=== PATIENT | female | born 1945 | race Caucasian/White ===

== ENCOUNTER 2023-12-18 09:38 | Emergency (ER) | payer MEDICARE, OTHER, SELFPAY ==
[2023-12-18 10:07] VITALS: BP 174/90
[2023-12-18 11:01] VITALS: BP 167/113
--- NOTE | 2023-12-18 11:12 | ED.CVA ---
History of Present Illness
General
Chief Complaint: CVA/TIA Symptoms
Source: patient
Exam Limitations: none
Time Seen by Provider: 12/18/23 10:44
Nursing documentation reviewed up to this point in time: agreed with
Onset of Stroke Symptoms
Onset of symptoms known: Yes
Date of onset of symptoms: 12/16/23
Travel History
Have you had any contact with someone who has COVID-19?: No
Do you have any symptoms of coronavirus? Fever > 100 degrees, chills, cough, shortness of breath, sore throat, loss of taste or smell, muscle aches, or headache?: No
History of Present Illness
History of Present Illness:
Patient discharged from [facility] 2 days ago, presents to ED secondary to continual shortness of breath with exertion along with leg swelling, as well as brief moment of slurred speech noted at the hospital prior to discharge, which has not
reoccurred. Denies headache. Denies dizziness. Denies blurred vision. Denies loss of sensation or weakness. Denies chest pain. Denies fever. Patient was started on torsemide upon discharge, which has caused her to go to the bathroom
frequently. 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 After the procedure, her shortness with exertion had improved drastically until recently. In addition, recently due to lifestyle and
dietary indiscretion, patient has gained approximately 20 pounds of weight.
Review of Systems
Review of Systems
Allergies reviewed?: Yes
All Other Systems: ROS reviewed and negative except as documented in HPI and ROS
Constitutional: Reports no symptoms
EENT: Reports no symptoms
Respiratory: Reports trouble breathing
Cardiac: Reports no symptoms
ABD/GI: Reports no symptoms
: Reports no symptoms
Musculoskeletal: Reports edema and other (foot pain)
Skin: Reports no symptoms
Neurological: Reports other (Slurred speech); Denies weakness
Phy Exam
Physical Exam
Physical Exam:
Physical Exam
General: no apparent distress, not acutely ill. afebrile. obese
Head: nc/at. eomi
Neck: supple. no meningeal signs.
Heart: s1/s2 regular rate and rhythm, systolic ejection murmur. equal radial pulses.
Lungs: no acute respiratory distress. clear bilaterally
Abdomen: normal bowel sounds. not tender.
Neuro: alert and oriented. no focal neurological deficits. normal speech.
Skin: no rash
Psychiatric: well kept. interactive and cooperative
Extremities: b/l LE edema. no calf tenderness.
Course
Orders/Labs/Results
Orders:
Orders
12/18/23 11:10
Electrocardiogram (*1) Urgent
Reason for Study: Shortness of Breath
CT Head W/o Iv Contrast Urgent
Comment:
Reason For Exam: slurred speech
EKG- Treatment ONCE
CR Chest - 2 Views Urgent
Comment:
Reason For Exam: sob w exertion
12/18/23 11:12
Physical Therapy Consult [Pt Eval And Treat] Urgent
Activity Level: As Tolerated
12/18/23 11:16
Basic Metabolic Panel Urgent
Complete Blood Count/No Diff Urgent
Magnesium Urgent
NT-proBNP Urgent
Troponin I Urgent
Abnormal Lab Results
12/18/23
11:16
WBC 12.3 H 10^3/uL
(4.8-10.8)
RBC 3.85 L 10^6/uL
(4.20-5.40)
Hgb 11.7 L g/dL
(12.0-16.0)
Hct 35.4 L %
(37.0-47.0)
BUN 31 H mg/dl
(7-17)
Glucose 181 H mg/dl
(70-99)
12/18/23 11:16
12/18/23 11:16
Vital Signs
Initial and Last Documented VS:
Initial Vital Signs
Temp Pulse Resp BP Pulse Ox
98.1 F 77 16 174/90 98
12/18/23 10:07 12/18/23 10:07 12/18/23 10:07 12/18/23 10:07 12/18/23 10:07
Last Documented Vital Signs
Temp Pulse Resp BP Pulse Ox
98.1 F 76 16 165/76 96
12/18/23 10:07 12/18/23 11:29 12/18/23 11:29 12/18/23 12:43 12/18/23 13:45
MDM/Problems Addressed
MDM/Problems Addressed:
Patient with an unremarkable workup in ED, including blood work, EKG, chest x-ray, as well as physical therapy evaluation. Patient remains afebrile, hemodynamically stable, and nontoxic-appearing. Patient's presenting symptoms likely secondary to
ongoing fluid overload, which is being addressed adequately as an outpatient. As such, patient will continue to diuretic that she is taking at home, along with close follow-up with her it training specialist within 1 week. In addition discussed potential
TIA with brief episode of word finding difficulty. Patient will be referred to neurology for an outpatient consultation.
Pt also evaluated by physical therapy - recommendations provided
*EKG
Interpreted by ED Provider?: Yes
EKG Intrepretation Date: 12/18/23
Heart Rate: 78
Rate: normal
Rhythm: sinus
[place]: left axis deviation
Interval: normal interval
*Critical Care Note
Total Time (30-74mins, 75-104mins- exclusive of procedures): Not Applicable
ED Attending Note
-
Portions of this chart may have been created with voice recognition software.� Occasional wrong word or��sound alike� substitutions may have occurred due to the inherent limitations of voice recognition software.
Discharge Plan
Departure
Patient Disposition: Home (Routine Discharge)
Date of Disposition: 12/18/23
Time of Disposition: 14:00
Patient with high blood pressure during this ER visit?: Yes
Condition: Fair
Discharge Problem:
Leg swelling, Neuropathy, Brain TIA
Instructions: Transient Ischemic Attack (DC), Dependent Edema (DC), Peripheral Neuropathy (DC)
Prescriptions:
No Action
Apple Cider Vinegar And Ruth
2 gummy PO QPM
multivitamin Tablet
1 tab PO DAILY
insulin glargine [Lantus U-100 Insulin] 100 unit/mL Solution
46 unit SC DAILY
Hold Instructions: Please call the office of Dr. Karina Grace MD. Endocrinology [phone] when you return home to discuss instructions for resuming your Insulin and PO diabetic medications. They were held during your hospital say due to
hypoglycemia
ibuprofen 800 mg Tablet
800 mg PO Q6H PRN (Reason: pain)
glipizide 10 mg Tablet
10 mg PO BID
Hold Instructions: Please call the office of Dr. Karina Grace MD. Endocrinology [phone] when you return home to discuss instructions for resuming your Insulin and PO diabetic medications. They were held during your hospital say due to
hypoglycemia
aspirin 81 mg Tablet,Delayed Release (Dr/Ec)
81 mg PO QPM
lidocaine [Lidoderm] 5 % Adhesive Patch,Medicated
1 patch TOPICAL DAILY PRN (Reason: pain)
furosemide [Lasix] 20 mg Tablet
20 mg PO DAILY
sertraline [Zoloft] 50 mg Tablet
50 mg PO DAILY
diazepam [Valium] 5 mg Tablet
5 mg PO BID PRN (Reason: anxiety)
rosuvastatin [Crestor] 10 mg Tablet
10 mg PO QPM
Trulicity 0.75 mg/0.5 mL Pen Injector
0.75 mg SC ROD
Hold Instructions: Please call the office of Dr. Karina Grace MD. Endocrinology [phone] when you return home to discuss instructions for resuming your Insulin and PO diabetic medications. They were held during your hospital say due to
hypoglycemia
turmeric 400 mg Capsule
400 mg PO DAILY
levothyroxine 25 mcg Tablet
25 mcg PO DAILY
Milk of Magnesia (antacid)
1 tab PO DAILY
Hold Instructions: Hold for loose stools/diarrhea. May resume if you become constipated
iron
1 dose IV PRN PRN (Reason: low iron)
dicyclomine 10 mg Capsule
10 mg PO QIDPRN PRN (Reason: crampy abdominal pain) Qty: 30 0RF
Rx Instructions:
Please discuss refills with PCP/Gastroenterology
tamsulosin 0.4 mg Capsule
0.4 mg PO DAILY Qty: 30 0RF
Rx Instructions:
Discuss continuing/refills with Urology
metoprolol tartrate 50 mg Tablet
50 mg PO Q12 Qty: 60 1RF
amiodarone [Pacerone] 200 mg Tablet
200 mg PO BID Qty: 90 0RF
Rx Instructions:
Take 200 mg (1 tab) BID x 14 days, then take 200 mg (1 tab) daily until seen in the office by Dr. Georgina MD.
clopidogrel 75 mg Tablet
75 mg PO DAILY Qty: 30 1RF
pantoprazole 40 mg Tablet,Delayed Release (Dr/Ec)
40 mg PO DAILY Qty: 30 0RF
Rx Instructions:
GI prophylaxis with Plavix. Take for 30 days. Discuss continuing/refills with PCP/Cardiology
Remove Patch [Remove Lidocaine Patch]
1 patch topical DAILY@1999 Qty: 1 0RF
acetaminophen 325 mg Tablet
650 mg PO Q4HPRN PRN (Reason: mild pain,headache,temp >101F ) Qty: 0 0RF
Rx Instructions:
Please purchase over the coutner.
tramadol 50 mg Tablet
25 mg PO Q6HPRN PRN (Reason: moderate-severe pain) Qty: 14 0RF
Rx Instructions:
1/2 tab ongoing pain control. Attending Dr Eduardo Chavira
Referrals:
Jean Pierre Constantino MD [Active] -
UNKNOWN - PT DOES,NOT KNOW [Family Provider] -
Activity Restrictions/Additional Instructions:
As discussed, please follow-up with your it training specialist for reevaluation within the next 1 week. In addition, as there is concern for potential mini stroke, advise outpatient consultation with referred neurologist.
Interventions
Interventions:
*Risk Screen - Suicide Last Done: 12/18/23 10:47
*General Assessment Last Done: 12/18/23 10:47
*Neglect/Abuse Screening Last Done: 12/18/23 10:47
ED- Fall Risk Assessment Last Done: 12/18/23 10:47
*ED COVID-19 Vaccine History Last Done: 12/18/23 10:47
*Nursing Disposition Last Done: 12/18/23 14:08
ED-Skin Assessment Last Done: 12/18/23 10:47
ED-Peripheral Vascular Assessment Last Done: 12/18/23 11:09
ED- Pulmonary Assessment Last Done: 12/18/23 10:47
ED- Neurological Assessment Last Done: 12/18/23 10:47
ED-Musculoskeletal Assessment Last Done: 12/18/23 10:47
ED- Cardiac Assessment Last Done: 12/18/23 10:47
ED Swallowing Screen Last Done: 12/18/23 12:42
Discharge Date and Time
Discharge Date/Time: 12/18/23 14:09
Print Language: FAROESE
[2023-12-18 11:32] LABS: Hematocrit 35.4 % (37.0-47.0); Hemoglobin 11.7 g/dL (12.0-16.0); Mean Corp Hgb Conc. 33.1 g/dL (33.0-37.0); Mean Corpuscular Hgb 30.4 pg (27.0-31.0); Mean Corpuscular Volume 91.9 fL (81.0-99.0); Platelet Count 198 10^3/uL (130-400); Red Blood Cell Count 3.85 10^6/uL (4.20-5.40); Red Cell Dist. Width 13.9 % (11.5-14.5); White Blood Cell Count 12.3 10^3/uL (4.8-10.8)
[2023-12-18 11:43] LABS: Blood Urea Nitrogen 31 mg/dl (7-17); Calcium 9.1 mg/dl (8.4-10.2); Carbon Dioxide 29 mmol/L (22-30); Chloride 101 mmol/L (98-107); Glucose 181 mg/dl (70-99); Magnesium 1.9 mg/dl (1.6-2.3); Potassium 4.5 mmol/L (3.5-5.1); Sodium 137 mmol/L (135-145); eGFR > 60.00
[2023-12-18 11:56] LABS: NT-proBNP 389 pg/ml; Troponin I < 0.012 ng/ml
[2023-12-18 12:43] VITALS: BP 165/76
[2023-12-18 13:04] VITALS: BP 165/76; PULSE 81; O2SAT 97
--- NOTE | 2023-12-19 10:16 | CM ---
RAJENDRA received called from Erick Cardoso PT that patient left message. RAJENDRA spoke with patient and she is requesting assistance setting up outpatient PT. She would like recommendations for outpatient PT. She advised that she works. RAJENDRA spoke with patient
and stated that she would not be eligible. RAJENDRA advised that patient will have to follow up with her PCP for outpatient PT. Patient was on the other line with her Information Systems Manager and hung up abruptly.
== END 2023-12-18 14:09 | disposition home or self-care (01) ==
LOC: EMR 09:38
PROVIDERS: EMERGENCY PHYSICIAN Emergency Medicine
DX: R22.40 Localized swelling, mass and lump, unspecified lower limb (principal); G62.9 Polyneuropathy, unspecified; G45.9 Transient cerebral ischemic attack, unspecified; Z95.2 Presence of prosthetic heart valve
CPT/HCPCS: 99284; 70450; 71046; 80048; 83735; 83880; 84484; 85027; 93005

== ENCOUNTER 2024-09-08 13:44 | Emergency (ER) | payer MEDICARE, OTHER, SELFPAY ==
[2024-09-08 13:51] VITALS: BP 179/82
[2024-09-08 14:15] LABS: % Basophils 0.6 % (0-2); % Eosinophils 2.5 % (0-6); % Immature Granulocytes 0.3 % (0-0.5); % Lymphocytes 13.2 % (20.5-51.1); % Monocytes 7.1 % (1.7-9.3); % Neutrophils 76.3 % (42.2-75.2); Absolute Basophils 0.1 10^3/uL (0-0.2); Absolute Eosinophils 0.2 10^3/uL (0-0.7); Absolute Lymphocytes 1.3 10^3/uL (1.2-3.4); Absolute Monocytes 0.7 10^3/uL (0.1-0.6); Absolute Neutrophils 7.3 10^3/uL (1.4-6.5); Hemoglobin 10.4 g/dL (12.0-16.0); Mean Corp Hgb Conc. 32.5 g/dL (33.0-37.0); Mean Corpuscular Hgb 29.1 pg (27.0-31.0); Mean Corpuscular Volume 89.6 fL (81.0-99.0); Nucleated Red Blood Cells % 0 %; Platelet Count 198 10^3/uL (130-400); Red Blood Cell Count 3.57 10^6/uL (4.20-5.40); Red Cell Dist. Width 14.1 % (11.5-14.5); White Blood Cell Count 9.6 10^3/uL (4.8-10.8)
[2024-09-08 14:30] LABS: ALT (SGPT) 16 U/L (0-35); AST (SGOT) 21 U/L (14-36); Albumin 3.6 g/dl (3.5-5.0); Alkaline Phosphatase 94 U/L (38-126); Blood Urea Nitrogen 19 mg/dl (7-17); Calcium 8.8 mg/dl (8.4-10.2); Carbon Dioxide 34 mmol/L (22-30); Chloride 99 mmol/L (98-107); Glucose 156 mg/dl (70-99); Potassium 4.2 mmol/L (3.5-5.1); Sodium 138 mmol/L (135-145); Total Bilirubin 0.6 mg/dl (0.2-1.3); Total Protein 5.9 g/dl (6.3-8.2); eGFR > 60.00
[2024-09-08 14:42] LABS: NT-proBNP 1080 pg/ml; Troponin I 0.024 ng/ml
--- NOTE | 2024-09-08 15:47 | ED.GENMED ---
History of Present Illness
General
Chief Complaint: Swelling
Source: patient
Time Seen by Provider: 09/08/24 15:31
History of Present Illness
History of Present Illness:
79-year-old female with past medical history of CAD, CHF, hypertension, hyperlipidemia, insulin-dependent diabetes presenting to the emergency department for evaluation of bilateral lower extremity edema, left worse than right, that has been ongoing
for the last week or so. Patient notes that around she had an accidental fall resulting in left leg swelling and bruising, yesterday had a harder time ambulating but today states she was able to ambulate a little bit better but had a
harder time putting on shoes on both of her feet secondary to the swelling. Patient denies any cough, chest pain, shortness of breath. She does report being prescribed Lasix 3 times a week and Bumex twice a week as needed. Patient does note she
does not like taking the Bumex as much before working because it makes her need to use the bathroom multiple times throughout the day which frustrates her. Patient has no other concerns at this time.
Past History
Past History
ED Past Medical History: CAD, Cancer, CHF, HTN, Hypercholesterolemia, IDDM, Valvular disease and Psychiatric
ED Past Surgical History: Bowel resection, Cardiac and Other
Social History
Tobacco: Non-smoker
Alcohol: None
Drug: None
Personal:
Living: with family
Review of Systems
Review of Systems
All Other Systems: ROS reviewed and negative except as documented in HPI and ROS
Phy Exam
Physical Exam
Physical Exam:
GENERAL: Alert , in no apparent distress
HEAD: NCAT
EYE: conjunctiva clear
NECK: Supple
ENT: o/p clr, mmm.
CARDIAC: Regular rate and rhythm
LUNGS: Clear breath sounds bilaterally, no acute respiratory distress, no wheezes/rales/rhonchi
NEUROLOGICAL: Alert and oriented
SKIN: Warm and dry, skin intact.
MUSCULOSKELETAL: b/l LE edema to the knees bilateral, LLE>RLE. there is ecchymosis and hematoma noted to proximolateral LLE with ttp. Easily palpable pedal and tibial pulses, CR < 2 sec. Sensation grossly intact to light touch
PSYCH: Normal and appropriate interaction.
Scores
Heart Failure Risk
Heart Failure Risk Score: Not Applicable
Heart Score for Chest Pain Patients
STEMI patient?: Not applicable
Withdrawal Assessment of Alcohol
Withdrawal Assessment Completed?: Not applicable
Course
Orders/Labs/Results
Orders:
Orders
09/08/24 13:56
Electrocardiogram (*1) Urgent
Reason for Study: Other
Other Reason for Exam: B/L LE swelling
09/08/24 13:57
EKG- Treatment ONCE
09/08/24 14:01
Complete Blood Count/With Diff Urgent
Comprehensive Metabolic Panel Urgent
Pro-BNP [NT-proBNP] Urgent
Troponin I Urgent
09/08/24 15:46
Furosemide [Lasix] 40 mg PO NOW STA
US Periph Venous LOWER Ext Marcell Urgent
Comment:
Reason For Exam: worsening edema
Abnormal Lab Results
09/08/24
14:01
RBC 3.57 L 10^6/uL
(4.20-5.40)
Hgb 10.4 L g/dL
(12.0-16.0)
Hct 32.0 L %
(37.0-47.0)
MCHC 32.5 L g/dL
(33.0-37.0)
Absolute Neuts (auto) 7.3 H 10^3/uL
(1.4-6.5)
Absolute Monos (auto) 0.7 H 10^3/uL
(0.1-0.6)
Neutrophils % 76.3 H %
(42.2-75.2)
Lymphocytes % 13.2 L %
(20.5-51.1)
Carbon Dioxide 34 H mmol/L
(22-30)
BUN 19 H mg/dl
(7-17)
Glucose 156 H mg/dl
(70-99)
Total Protein 5.9 L g/dl
(6.3-8.2)
09/08/24 14:01
09/08/24 14:01
Vital Signs
Initial and Last Documented VS:
Initial Vital Signs
Temp Pulse Resp BP Pulse Ox
97.5 F 77 18 179/82 98
09/08/24 13:51 09/08/24 13:51 09/08/24 13:51 09/08/24 13:51 09/08/24 13:51
Last Documented Vital Signs
Temp Pulse Resp BP Pulse Ox
97.5 F 76 16 185/83 97
09/08/24 13:51 09/08/24 17:07 09/08/24 15:16 09/08/24 17:07 09/08/24 15:16
MDM/Problems Addressed
Differential Diagnosis Includes:
Peripheral vascular disease, left lower extremity hematoma/contusion, CHF, no symptoms to suggest peripheral arterial disease/acute arterial occlusion
MDM/Problems Addressed:
79-year-old female presenting the ER for evaluation of bilateral lower extremity edema, left worse than right. Had an accidental fall [place] [facility] with noted contusion and swelling which I suspect is the reason why patient's left lower extremity
is more edematous compared to the right. Patient is on Lasix 20 mg 3 times a week and Bumex 1 mg twice a week however compliance is somewhat question given she states that when she takes the Bumex it makes her need to urinate too much and she does
not like taking this. I am planning to increase patient's Lasix temporarily to 40 mg once daily x 1 week. Will obtain an ultrasound to rule out DVT to the bilateral lower extremities. Patient has a follow-up scheduled with cardiology on September
with [facility] cardiology already.
Chronic conditions affecting care: PVD and Other (CHF)
Acute Exacerbation and/or Progression of Chronic Illness: PVD
*Radiology
Radiology exam reviewed: radiology read reviewed
*Pulse Oximetry
Patient hypoxic: no
*EKG
Heart Rate: 73
Rate: normal
Rhythm: sinus
[place]: normal axis
Ischemia: no ischemia
*Critical Care Note
Total Time (30-74mins, 75-104mins- exclusive of procedures): Not Applicable
Patient Management
Escalation/DeEscalation of care consider admission/obs:
Patient's ultrasound is negative for DVT and SVT. Will be sending home on the 1 week course of 40 mg Lasix daily. Patient will follow-up with primary care provider and cardiology. Aware of return precautions to the emergency department.
ED Attending Note
-
Portions of this chart may have been created with voice recognition software.� Occasional wrong word or��sound alike� substitutions may have occurred due to the inherent limitations of voice recognition software.
Discharge Plan
Departure
Patient Disposition: Home (Routine Discharge)
Date of Disposition: 09/08/24
Time of Disposition: 17:18
Patient with high blood pressure during this ER visit?: Yes
Discharge Problem:
Edema of both lower extremities, Contusion of left lower extremity
Instructions: Dependent Edema (DC), *CBC Heart Failure Instructions
Prescriptions:
New
furosemide [Lasix] 40 mg tablet
40 mg PO BID 7 Days Qty: 14 0RF
No Action
Apple Cider Vinegar And Ruth
2 gummy PO QPM
multivitamin Tablet
1 tab PO DAILY
insulin glargine [Lantus U-100 Insulin] 100 unit/mL Solution
46 unit SC DAILY
ibuprofen 800 mg Tablet
800 mg PO Q6H PRN (Reason: pain)
glipizide 10 mg Tablet
10 mg PO BID
aspirin 81 mg Tablet,Delayed Release (Dr/Ec)
81 mg PO QPM
lidocaine [Lidoderm] 5 % Adhesive Patch,Medicated
1 patch TOPICAL DAILY PRN (Reason: pain)
furosemide [Lasix] 20 mg Tablet
20 mg PO DAILY
sertraline [Zoloft] 50 mg Tablet
50 mg PO DAILY
diazepam [Valium] 5 mg Tablet
5 mg PO BID PRN (Reason: anxiety)
rosuvastatin [Crestor] 10 mg Tablet
10 mg PO QPM
Trulicity 0.75 mg/0.5 mL Pen Injector
0.75 mg SC ROD
turmeric 400 mg Capsule
400 mg PO DAILY
levothyroxine 25 mcg Tablet
25 mcg PO DAILY
Milk of Magnesia (antacid)
1 tab PO DAILY
iron
1 dose IV PRN PRN (Reason: low iron)
dicyclomine 10 mg Capsule
10 mg PO QIDPRN PRN (Reason: crampy abdominal pain) Qty: 30 0RF
Rx Instructions:
Please discuss refills with PCP/Gastroenterology
tamsulosin 0.4 mg Capsule
0.4 mg PO DAILY Qty: 30 0RF
Rx Instructions:
Discuss continuing/refills with Urology
metoprolol tartrate 50 mg Tablet
50 mg PO Q12 Qty: 60 1RF
amiodarone [Pacerone] 200 mg Tablet
200 mg PO BID Qty: 90 0RF
Rx Instructions:
Take 200 mg (1 tab) BID x 14 days, then take 200 mg (1 tab) daily until seen in the office by Dr. Georgina MD.
clopidogrel 75 mg Tablet
75 mg PO DAILY Qty: 30 1RF
pantoprazole 40 mg Tablet,Delayed Release (Dr/Ec)
40 mg PO DAILY Qty: 30 0RF
Rx Instructions:
GI prophylaxis with Plavix. Take for 30 days. Discuss continuing/refills with PCP/Cardiology
Remove Patch [Remove Lidocaine Patch]
1 patch topical DAILY@1999 Qty: 1 0RF
acetaminophen 325 mg Tablet
650 mg PO Q4HPRN PRN (Reason: mild pain,headache,temp >101F ) Qty: 0 0RF
Rx Instructions:
Please purchase over the coutner.
tramadol 50 mg Tablet
25 mg PO Q6HPRN PRN (Reason: moderate-severe pain) Qty: 14 0RF
Rx Instructions:
1/2 tab ongoing pain control. Attending Dr Eduardo Chavira
Referrals:
Erick Mahan MD [Family Provider] -
Stand Alone Forms: Return to Work
Interventions
Interventions:
*Risk Screen - Suicide Last Done: 09/08/24 13:51
*General Assessment Last Done: 09/08/24 13:51
*Neglect/Abuse Screening Last Done: 09/08/24 13:51
*Nursing Disposition Last Done: 09/08/24 17:29
ED- Cardiac Assessment Last Done: 09/08/24 15:16
ED- Pulmonary Assessment Last Done: 09/08/24 15:16
Discharge Date and Time
Discharge Date/Time: 09/08/24 17:29
Print Language: MALAY
[2024-09-08] MEDS: LASIX 40 MG PO (17:07)
== END 2024-09-08 17:29 | disposition home or self-care (01) ==
LOC: EMR 13:44
PROVIDERS: EMERGENCY PHYSICIAN Student in an Organized Health Care Education/Training Program; FAMILY PHYSICIAN Family Medicine
DX: R60.0 Localized edema (principal); S80.12XA Contusion of left lower leg, initial encounter; W19.XXXA Unspecified fall, initial encounter; R26.2 Difficulty in walking, not elsewhere classified; I25.10 Atherosclerotic heart disease of native coronary artery without angina pectoris; I11.0 Hypertensive heart disease with heart failure; I50.9 Heart failure, unspecified; E78.00 Pure hypercholesterolemia, unspecified; E11.51 Type 2 diabetes mellitus with diabetic peripheral angiopathy without gangrene; Z79.4 Long term (current) use of insulin; Z98.0 Intestinal bypass and anastomosis status; Z85.9 Personal history of malignant neoplasm, unspecified; Z88.5 Allergy status to narcotic agent; Z88.0 Allergy status to penicillin
CPT/HCPCS: 99284; 80053; 83880; 84484; 85025; 93005; 93970